=== PATIENT | female | born 1990 | race Caucasian/White ===

== ENCOUNTER 2022-04-21 10:52 | Outpatient (CLI) | payer SELFPAY ==
[2022-04-21 18:30] LABS: Chlamydia DNA Amplified* NOT DETECTED (No Detected); GC DNA Amplified* NOT DETECTED (No Detected)
== END 2022-04-21 10:53 | disposition home or self-care (01) ==
PROVIDERS: Visit Provider Registered Nurse
DX: Z11.3 Encounter for screening for infections with a predominantly sexual mode of transmission (principal); Z12.4 Encounter for screening for malignant neoplasm of cervix
CPT/HCPCS: 87491; 87591

== ENCOUNTER 2023-08-03 16:29 | Emergency (ER) | payer OTHER, SELFPAY ==
[2023-08-03 16:35] VITALS: BP 129/80; PULSE 76; RESP 16; TEMP 36.4; O2SAT 100; BMI 74.2
--- NOTE | 2023-08-03 16:43 | ED_ITS ---
HPI - General Adult General Stated complaint: Nausea, headache Time Seen by Provider: 08/03/23 16:41 History of Present Illness HPI narrative: 32-year-old female with a history of GERD, currently using Nexplanon for contraception. She came to the ER desiring to have her Nexplanon removed. She had this conversation with the ER triage nurse. Knowing that we do not Rue Nexplanon is in the ER, the patient chose to leave the emergency room. She was not seen by medical provider. The triage nurse was able to give the patient information for outpatient follow-up in our clinic and she can have her Nexplanon removed in the outpatient setting Related Data Home Medications Medication Instructions Recorded Confirmed omeprazole 20 mg capsule,delayed 20 mg PO Q3D 04/21/22 03/27/23 release Allergies Allergy/AdvReac Type Severity Reaction Status Date / Time No Known Drug Allergies Allergy Verified 03/27/23 14:22 PFSH PFSH Surgical History History of appendectomy ?Z90.49 - Acquired absence of other specified parts of digestive tract (ICD- 10) Family History Mother Heart disease High blood pressure Brother Diabetes Father Diabetes Social History What is your current living situation?: I presently have a place to live Problems where you live: no known problems In the past 12 months, utilities in danger of being shut off: no In past 12 months, lack of transportation kept you from medical appts, meetings, work, or getting things needed for daily living: no In the past 12 mos, have been you worried that your food would run out before you had money to buy more?: sometimes true In the past 12 mos, the food you bought just didn't last and you didn't have money to buy more?: sometimes true Smoking Status: Never smoker How often does anyone, including family, friends and others, physically hurt you : never How often does anyone, including family, friends and others, insult or talk down to you: never How often does anyone, including family, friends and others, threaten you with harm: never How often does anyone, including family, friends and others, scream or curse at you: never Exam Const: Vital Signs, click to edit/add: Vital Signs - 24 hr 08/03/23 16:35 Temperature 97.6 F Pulse Rate [Pulse Oximeter] 76 Respiratory Rate 16 Blood Pressure [Ri ght Upper Arm] 129/80 Pulse Oximetry 100 Oxygen Delivery Me thod Room Air Course Vital Signs Vital signs: Initial Vital Signs Temperature 97.6 F 08/03/23 16:35 Temperature Source Temporal Artery Scan 08/03/23 16:35 Pulse Rate 76 08/03/23 16:35 Respiratory Rate 16 08/03/23 16:35 Blood Pressure 129/80 08/03/23 16:35 Blood Pressure Mean 96 08/03/23 16:35 Blood Pressure Position Sitting 08/03/23 16:35 Pulse Oximetry 100 08/03/23 16:35 Oxygen Delivery Method Room Air 08/03/23 16:35 Vital Signs Temperature 97.6 F 08/03/23 16:35 Pulse Rate 76 08/03/23 16:35 Respiratory Rate 16 08/03/23 16:35 Blood Pressure 129/80 08/03/23 16:35 Pulse Oximetry 100 08/03/23 16:35 Oxygen Delivery Method Room Air 08/03/23 16:35 Temperature 97.6 F 08/03/23 16:35 Pulse Rate 76 08/03/23 16:35 Respiratory Rate 16 08/03/23 16:35 Blood Pressure 129/80 08/03/23 16:35 Pulse Oximetry 100 08/03/23 16:35 Oxygen Delivery Method Room Air 08/03/23 16:35 Discharge Plan Discharge Prescriptions: No Action omeprazole 20 mg capsule,delayed release(DR/EC) 20 mg PO Q3D Follow Up/Referrals: Provider,Not a Local [Primary Care Provider] -
== END 2023-08-03 17:04 | disposition home or self-care (01) ==
LOC: ED 17:01
PROVIDERS: Emergency Provider Emergency Medicine
DX: Z53.21 Procedure and treatment not carried out due to patient leaving prior to being seen by health care provider (principal)
CPT/HCPCS: 99281

== ENCOUNTER 2023-08-11 18:01 | Emergency (ER) | payer OTHER, SELFPAY ==
[2023-08-11 18:10] VITALS: BP 127/77; PULSE 85; RESP 18; TEMP 36.5; O2SAT 99; BMI 39.5
--- NOTE | 2023-08-11 18:47 | ED_ITS ---
HPI - Headache General Time Seen by Provider: 18:48 <Sara Baum MD - Last Filed: 08/11/23 18:48> Date Seen: 08/11/23 <Sara Baum MD - Last Filed: 08/11/23 18:48> Chief Complaint: Headache/Migraine <Sara Baum MD - Last Filed: 08/11/23 18:48> Stated Complaint: Back/head pain <Sara Baum MD - Last Filed: 08/11/23 18:48> Time Seen by Provider: 08/11/23 18:28 <Sara Baum MD - Last Filed: 08/11/23 18:48> Source: patient <Sara Baum MD - Last Filed: 08/11/23 18:48> Mode of arrival: ambulatory <Sara Baum MD - Last Filed: 08/11/23 18:48> Limitations: no limitations <Sara Baum MD - Last Filed: 08/11/23 18:48> History of Present Illness HPI Narrative: Back pain and headache for three days. Has been taking ibuprofen without relief. 32-year-old woman presenting to emergency depart with complaint of headache and back pain <Clif Sam MD - Last Filed: 08/17/23 13:29> Related Data Home Medications: Home Medications Medication Instructions Recorded Confirmed omeprazole 20 mg capsule,delayed 20 mg PO Q3D 04/21/22 03/27/23 release <Sara Baum MD - Last Filed: 08/11/23 18:48> Allergies/Adverse Reactions: Allergies Allergy/AdvReac Type Severity Reaction Status Date / Time No Known Drug Allergies Allergy Verified 03/27/23 14:22 <Sara Baum MD - Last Filed: 08/11/23 18:48> PFSH PFSH Surgical History: Surgical History History of appendectomy ?Z90.49 - Acquired absence of other specified parts of digestive tract (ICD- 10) <Sara Baum MD - Last Filed: 08/11/23 18:48> Family History: Family History Mother Heart disease High blood pressure Brother Diabetes Father Diabetes <Sara Baum MD - Last Filed: 08/11/23 18:48> Social History: Social History What is your current living situation?: I presently have a place to live Problems where you live: no known problems In the past 12 months, utilities in danger of being shut off: no In past 12 months, lack of transportation kept you from medical appts, meetings, work, or getting things needed for daily living: no In the past 12 mos, have been you worried that your food would run out before you had money to buy more?: sometimes true In the past 12 mos, the food you bought just didn't last and you didn't have money to buy more?: sometimes true Smoking Status: Never smoker How often does anyone, including family, friends and others, physically hurt you : never How often does anyone, including family, friends and others, insult or talk down to you: never How often does anyone, including family, friends and others, threaten you with harm: never How often does anyone, including family, friends and others, scream or curse at you: never <Sara Baum MD - Last Filed: 08/11/23 18:48> Exam Const: Vital Signs, click to edit/add: Vital Signs - 24 hr 08/11/23 18:10 Temperature 97.7 F Pulse Rate [Pulse Oximeter] 85 Respiratory Rate 18 Blood Pressure [Ri ght Upper Arm] 127/77 Pulse Oximetry 99 Oxygen Delivery Me thod Room Air <Sara Baum MD - Last Filed: 08/11/23 18:48> Vital Signs, click to edit/add: Vital Signs - 24 hr 08/11/23 18:10 Temperature 97.7 F Pulse Rate [Pulse Oximeter] 85 Respiratory Rate 18 Blood Pressure [Ri ght Upper Arm] 127/77 Pulse Oximetry 99 Oxygen Delivery Me thod Room Air <Clif Sam MD - Last Filed: 08/17/23 13:29> Course Vital Signs Vital signs: Initial Vital Signs Temperature 97.7 F 08/11/23 18:10 Temperature Source Temporal Artery Scan 08/11/23 18:10 Pulse Rate 85 08/11/23 18:10 Respiratory Rate 18 08/11/23 18:10 Blood Pressure 127/77 08/11/23 18:10 Blood Pressure Mean 93 08/11/23 18:10 Blood Pressure Position Sitting 08/11/23 18:10 Pulse Oximetry 99 08/11/23 18:10 Oxygen Delivery Method Room Air 08/11/23 18:10 Vital Signs Temperature 97.7 F 08/11/23 18:10 Pulse Rate 85 08/11/23 18:10 Respiratory Rate 18 08/11/23 18:10 Blood Pressure 127/77 08/11/23 18:10 Pulse Oximetry 99 08/11/23 18:10 Oxygen Delivery Method Room Air 08/11/23 18:10 Temperature 97.7 F 08/11/23 18:10 Pulse Rate 85 08/11/23 18:10 Respiratory Rate 18 08/11/23 18:10 Blood Pressure 127/77 08/11/23 18:10 Pulse Oximetry 99 08/11/23 18:10 Oxygen Delivery Method Room Air 08/11/23 18:10 <Sara Baum MD - Last Filed: 08/11/23 18:48> Initial Vital Signs Temperature 97.7 F 08/11/23 18:10 Temperature Source Temporal Artery Scan 08/11/23 18:10 Pulse Rate 85 08/11/23 18:10 Respiratory Rate 18 08/11/23 18:10 Blood Pressure 127/77 08/11/23 18:10 Blood Pressure Mean 93 08/11/23 18:10 Blood Pressure Position Sitting 08/11/23 18:10 Pulse Oximetry 99 08/11/23 18:10 Oxygen Delivery Method Room Air 08/11/23 18:10 Vital Signs Temperature 97.7 F 08/11/23 18:10 Pulse Rate 85 08/11/23 18:10 Respiratory Rate 18 08/11/23 18:10 Blood Pressure 127/77 08/11/23 18:10 Pulse Oximetry 99 08/11/23 18:10 Oxygen Delivery Method Room Air 08/11/23 18:10 Temperature 97.7 F 08/11/23 18:10 Pulse Rate 85 08/11/23 18:10 Respiratory Rate 18 08/11/23 18:10 Blood Pressure 127/77 08/11/23 18:10 Pulse Oximetry 99 08/11/23 18:10 Oxygen Delivery Method Room Air 08/11/23 18:10 <Clif Sam MD - Last Filed: 08/17/23 13:29> Discharge Plan Discharge Patient Disposition: Left Without Being Seen <Sara Baum MD - Last Filed: 08/11/23 18:48>
== END 2023-08-11 20:15 | disposition left against medical advice (07) ==
LOC: ED 20:13
PROVIDERS: Emergency Provider Family Medicine
DX: Z53.21 Procedure and treatment not carried out due to patient leaving prior to being seen by health care provider (principal)
CPT/HCPCS: 99281